=== PATIENT | female | born 1950 | race Caucasian/White ===

== ENCOUNTER 2018-07-18 14:46 | Emergency (ER) | payer OTHER ==
--- OUTSIDE RECORDS SUMMARY | 2018-07-18 14:53 | XMS REPORT | Summary of Care ---
:1950 Author Organization [facility] [place] Address [address] [place] [id number] Encounter HQ Encntr_alias(FIN) [id number] Date(s): 04/18/16 - 04/18/16 [facility] [address], [address] [place] [address]- [phone] Discharge Disposition: Home or Self Care Attending Physician: Loyd Leary MD Vital Signs No data available for this section Problem List Condition Effective Dates Status Health Status Informant Abnormal weight gain1 06/28/11 Active Breast lump2 06/28/11 Active Fatigue3 06/28/11 Active Hypertension(Confirmed) Active Anxiety and depression(Confirmed) Active Obesity(Confirmed) Active Thyroid function tests abnormal4 06/28/11 Active 1Data migrated from [employer] on 01/05/15.2Data migrated from [employer] on 01/05/15.3Data migrated from [employer] on 01/05/15.4Data migrated from [employer] on 01/05/15. Allergies, Adverse Reactions, Alerts Substance Reaction Severity Status HYDROmorphone1 Active tetracycline2 Active 1Data migrated from [employer] on 12/04/14. Originally documented as DILAUDID. ?2Data migrated from [employer] on 12/04/14. Originally documented as TETRACYCLINE. Medications No data available for this section Results No data available for this section Immunizations No data available for this section Procedures Procedure Date Related Diagnosis Body Site Breast augmentation Colonoscopy Hysterectomy Social History Social History Type Response Alcohol Never Smoking Status Never smoker; Exposure to Tobacco Smoke None; Cigarette Smoking Last 365 Days No; Reg Smoking Cessation Counseling No Assessment and Plan No data available for this section
[2018-07-18] MEDS ORDERED: ALBUTEROL 2.5 MG/3 ML NEB SOL ONE (15:45)
[2018-07-18] MEDS ORDERED: METHYLPREDNISOLONE 125 MG INJ ONE (15:45)
[2018-07-18 16:02] LABS: Absolute Neutrophil 8.9 K/uL (1.8-8.0); Basophils % 1.4 % (0-1.3); Hematocrit 43.1 % (36.0-45.0); Lymphocytes % 16.2 % (15.3-44.8); MCH 29.7 pg (27.0-35.0); MCV 87.3 fL (80-100); Monocytes % 7.9 % (3.3-12.3); Protime INR 1.04; RBC Red Blood Cell Count 4.93 M/uL (3.86-4.86)
--- NOTE | 2018-07-18 16:09 | RAD REPORT ---
EXAM DESCRIPTION: Gema Single View07/18/2018 4:01 pm CLINICAL HISTORY: sob COMPARISON: none FINDINGS: The lungs appear clear of acute infiltrate. The heart is normal size IMPRESSION: No acute abnormalities displayed
[2018-07-18 16:16] LABS: ALT/SGPT 22 U/L (12-78); AST/SGOT 14 U/L (15-37); Albumin 3.7 g/dL (3.4-5.0); Alkaline Phosphatase 67 U/L (45-117); BUN Blood Urea Nitrogen 14 mg/dL (7-18); Bicarbonate 30 mmol/L (21-32); Bilirubin Direct 0.1 mg/dL (0-0.2); Bilirubin Total 0.5 mg/dL (0.2-1.0); Glucose Level 102 mg/dL (74-106); Magnesium 2.1 mg/dL (1.8-2.4); NT PRO-BNP 250 pg/mL (<125); Potassium 4.1 mmol/L (3.5-5.1); Protein, Total 8.1 g/dL (6.4-8.2); Sodium Level 138 mmol/L (136-145); Troponin (Emerg Dept Use Only) < 0.02 ng/mL (0.0-0.045)
--- NOTE | 2018-07-18 17:12 | EDPHYS ---
Physician Documentation [facility] Name: Oksana Elizalde Age: 68 yrs Sex: Female : 1950 Arrival Date: 07/18/2018 Time: 14:50 Bed 28 Private MD: Lester Rasheed ED Physician Lee Padron HPI: 07/18 16:23 This 68 yrs old Female presents to ER via Wheelchair with complaints of jr8 Breathing Difficulty. 16:23 The patient has shortness of breath at rest. Onset: The symptoms/episode began/occurred jr8 acutely, yesterday. Duration: The symptoms are continuous. The patient's shortness of breath is aggravated by talking, walking. Associated signs and symptoms: Pertinent positives: non-productive cough. Severity of symptoms: At their worst the symptoms were moderate in the emergency department the symptoms are unchanged. The patient has not experienced similar symptoms in the past. The patient has not recently seen a physician. Patient stated that she continually has wheezing on/off and feels shortness of breath with any exertion. Has to frequently rest. Stated that yesterday had sudden onset of shortness of breath at rest that has not relieved. Denies having this hard of time in past. Tried inhaler at home but without much relief. Denies cardiac or pulmonary history . Historical: - Allergies: 15:24 Dilaudid; mg2 15:24 TETRACYCLINES; mg2 - Home Meds: 15:24 metoprolol tartrate 25 mg Oral tab [Active]; Fluoxetine Oral [Active]; mg2 - PMHx: 15:24 Hypertension; mg2 - PSHx: 15:24 colon surgery; Hysterectomy; breast implants; tummy tuck; Appendectomy; mg2 - Immunization history:: Flu vaccine is not up to date. - Social history:: Smoking status: Patient/guardian denies using tobacco, Patient/guardian denies using alcohol, street drugs, IV drugs. - Ebola Screening: : No symptoms or risks identified at this time. ROS: 16:23 Eyes: Negative for injury, pain, redness, and discharge, ENT: Negative for injury, jr8 pain, and discharge, Neck: Negative for injury, pain, and swelling, Cardiovascular: Negative for chest pain, palpitations, and edema, Abdomen/GI: Negative for abdominal pain, nausea, vomiting, diarrhea, and constipation, Back: Negative for injury and pain, MS/Extremity: Negative for injury and deformity, Skin: Negative for injury, rash, and discoloration, Neuro: Negative for headache, weakness, numbness, tingling, and seizure. 16:23 Respiratory: Positive for cough, dyspnea on exertion, shortness of breath, wheezing. Exam: 16:23 Eyes: Pupils equal round and reactive to light, extra-ocular motions intact. Lids and jr8 lashes normal. Conjunctiva and sclera are non-icteric and not injected. Cornea within normal limits. Periorbital areas with no swelling, redness, or edema. ENT: Nares patent. No nasal discharge, no septal abnormalities noted. Tympanic membranes are normal and external auditory canals are clear. Oropharynx with no redness, swelling, or masses, exudates, or evidence of obstruction, uvula midline. Mucous membranes moist. Neck: Trachea midline, no thyromegaly or masses palpated, and no cervical lymphadenopathy. Supple, full range of motion without nuchal rigidity, or vertebral point tenderness. No Meningismus. Cardiovascular: Regular rate and rhythm with a normal S1 and S2. No gallops, murmurs, or rubs. Normal PMI, no JVD. No pulse deficits. Abdomen/GI: Soft, non-tender, with normal bowel sounds. No distension or tympany. No guarding or rebound. No evidence of tenderness throughout. Back: No spinal tenderness. No costovertebral tenderness. Full range of motion. Skin: Warm, dry with normal turgor. Normal color with no rashes, no lesions, and no evidence of cellulitis. MS/ Extremity: Pulses equal, no cyanosis. Neurovascular intact. Full, normal range of motion. Neuro: Awake and alert, GCS 15, oriented to person, place, time, and situation. Cranial nerves II-XII grossly intact. Motor strength 5/5 in all extremities. Sensory grossly intact. Cerebellar exam normal. Normal gait. 16:23 Respiratory: the patient does not display signs of respiratory distress, Respirations: normal, symetrical, no use of accessory muscles, no grunting, no evidence of nasal flaring, no prolonged exhalations, no pursed lip breathing, no retractions, no shallow respirations, no splinting, no tachypnea, Breath sounds: decreased breath sounds, that are mild, are located in both bases. Vital Signs: 15:22 BP 150 / 73; Pulse 70; Resp 18; Temp 98.7; Pulse Ox 96% on R/A; Weight 81.65 kg; Height mg2 5 ft. 2 in. (157.48 cm); Pain 0/10; 16:00 BP 140 / 72; Pulse 95; Resp 18; Pulse Ox 100% on R/A; Pain 0/10; mg2 17:11 BP 143 / 73; Pulse 97; Resp 18; Pulse Ox 98% on R/A; Pain 0/10; mg2 15:22 Body Mass Index 32.92 (81.65 kg, 157.48 cm) mg2 MDM: 15:13 Patient medically screened. jr8 17:10 Differential diagnosis: Anemia Anxiety Reaction asthma, Bronchitis CHF exacerbation, jr8 Chronic Obstructive Pulmonary Disease Myocardial Infarction pneumonia, pulmonary edema, Pulmonary Embolism Sepsis. Data reviewed: vital signs, nurses notes, lab test result(s), EKG, radiologic studies, plain films. Data interpreted: Pulse oximetry: on room air is 96 %. Interpretation: normal. Counseling: I had a detailed discussion with the patient and/or guardian regarding: the historical points, exam findings, and any diagnostic results supporting the discharge/admit diagnosis, lab results, radiology results, the need for outpatient follow up, a integrated campaign manager, to return to the emergency department if symptoms worsen or persist or if there are any questions or concerns that arise at home. Response to treatment: the patient's symptoms have markedly improved after treatment. 07/18 15:32 Order name: Basic Metabolic Panel; Complete Time: 16:20 07/18 15:32 Order name: CBC with Diff; Complete Time: 16:20 07/18 15:32 Order name: LFT's; Complete Time: 16:20 07/18 15:32 Order name: Magnesium; Complete Time: 16:20 07/18 15:32 Order name: NT PRO-BNP; Complete Time: 16:20 07/18 15:32 Order name: PT-INR; Complete Time: 16:20 07/18 15:32 Order name: Troponin (emerg Dept Use Only); Complete Time: 16:20 07/18 15:32 Order name: XRAY Chest (1 view); Complete Time: 16:20 07/18 15:32 Order name: EKG; Complete Time: 15:33 jr8 07/18 15:32 Order name: Cardiac monitoring; Complete Time: 15:54 [facility] 07/18 15:32 Order name: EKG - Nurse/Tech; Complete Time: 15:55 [facility] 07/18 15:32 Order name: IV Saline Lock; Complete Time: 15:55 [facility] 07/18 15:32 Order name: Labs collected and sent; Complete Time: 15:55 [facility] 07/18 15:32 Order name: O2 Per Protocol; Complete Time: 15:55 [facility] 07/18 15:32 Order name: O2 Sat Monitoring; Complete Time: 15:55 Administered Medications: 15:52 Drug: Albuterol 2.5 mg Route: Inhalation; mg2 15:53 Drug: SOLU-Medrol 125 mg Route: IVP; Site: right antecubital; mg2 17:12 Follow up: Response: No adverse reaction; Marked relief of symptoms mg2 16:15 Drug: Albuterol 2.5 mg Route: Inhalation; mg2 16:50 Drug: Albuterol 2.5 mg Route: Inhalation; mg2 17:12 Follow up: Response: No adverse reaction; Marked relief of symptoms mg2 Disposition: 07/18/18 17:11 Discharged to Home. Impression: Acute bronchitis. - Condition is Stable. - Discharge Instructions: Acute Bronchitis, Adult. - Prescriptions for Prednisone 20 mg Oral Tablet - take 2 tablet by ORAL route once daily for 5 days; 10 tablet. Albuterol Sulfate 90 mcg/actuation - inhale 1-2 puff by INHALATION route every 4-6 hours; 1 Inhaler. - Medication Reconciliation Form, Thank You Letter, Antibiotic Education, Prescription Opioid Use form. - Follow up: Jeff Govea MD; When: 2 - 3 days; Reason: Recheck today's complaints, Continuance of care, Re-evaluation by your physician. - Problem is new. - Symptoms have improved. Addendum: 07/24/2018 01:35 Co-signature as Attending Physician, Lee Padron MD. r n Signatures: Dispatcher [employer] Lee Goldstein MD MD rn Roszak, Josh, PA PA jr8 Bob Cifuentes RN RN mg2 Corrections: (The following items were deleted from the chart) 07/18 17:25 17:11 07/18/2018 17:11 Discharged to Home. Impression: Acute bronchitis. Condition is mg2 Stable. Forms are Medication Reconciliation Form, Thank You Letter, Antibiotic Education, Prescription Opioid Use. Follow up: Jeff Govea; When: 2 - 3 days; Reason: Recheck today's complaints, Continuance of care, Re-evaluation by your physician. Problem is new. Symptoms have improved. jr8
--- NOTE | 2018-07-18 17:12 | ER ---
Nurse's Notes [facility] Name: Oksana Elizalde Age: 68 yrs Sex: Female : 1950 Arrival Date: 07/18/2018 Time: 14:50 Bed 28 Private MD: Lester Rasheed Diagnosis: Acute bronchitis Presentation: 07/18 15:21 Presenting complaint: Patient states: she has shortness of breath since last night and mg2 coughing for a long time. uses inhaler at home but seems not to work,. Transition of care: patient was not received from another setting of care. Onset of symptoms was July 17, 2018. Risk Assessment: Do you want to hurt yourself or someone else? Patient reports no desire to harm self or others. Initial Sepsis Screen: Does the patient meet any 2 criteria? No. Patient's initial sepsis screen is negative. Does the patient have a suspected source of infection? No. Patient's initial sepsis screen is negative. Care prior to arrival: None. 15:21 Method Of Arrival: Wheelchair mg2 15:21 Acuity: WAYLON 3 mg2 Triage Assessment: 15:57 General: Appears in no apparent distress. Respiratory: the patient has mild shortness mg2 of breath. Respiratory: Onset: The symptoms/episode began/occurred gradually. Historical: - Allergies: 15:24 Dilaudid; mg2 15:24 TETRACYCLINES; mg2 - Home Meds: 15:24 metoprolol tartrate 25 mg Oral tab [Active]; Fluoxetine Oral [Active]; mg2 - PMHx: 15:24 Hypertension; mg2 - PSHx: 15:24 colon surgery; Hysterectomy; breast implants; tummy tuck; Appendectomy; mg2 - Immunization history:: Flu vaccine is not up to date. - Social history:: Smoking status: Patient/guardian denies using tobacco, Patient/guardian denies using alcohol, street drugs, IV drugs. - Ebola Screening: : No symptoms or risks identified at this time. Screenin:56 Abuse screen: Denies threats or abuse. Denies injuries from another. Nutritional mg2 screening: No deficits noted. Tuberculosis screening: No symptoms or risk factors identified. Fall Risk IV access (20 points). Assessment: 15:55 General: Appears in no apparent distress. comfortable, Behavior is calm, cooperative. mg2 Pain: Denies pain. Neuro: Level of Consciousness is awake, alert, obeys commands, Oriented to person, place, time, situation. Cardiovascular: Capillary refill < 3 seconds Patient's skin is warm and dry. Rhythm is regular. Respiratory: Airway is patent Respiratory effort is even, unlabored, Respiratory pattern is regular, symmetrical, Breath sounds are clear bilaterally. in mediastinum, right upper lobe, left upper lobe, left posterior upper lobe, right posterior upper lobe, left posterior lower lobe, right posterior middle lobe and right posterior lower lobe. Respiratory: Reports shortness of breath at rest since last night cough that is. GI: No signs and/or symptoms were reported involving the gastrointestinal system. : No signs and/or symptoms were reported regarding the genitourinary system. EENT: No signs and/or symptoms were reported regarding the EENT system. Derm: Skin is intact, is healthy with good turgor, Skin is pink, warm \T\ dry. normal. Musculoskeletal: No deficits noted. 17:11 Reassessment: Patient appears in no apparent distress at this time. Patient and/or mg2 family updated on plan of care and expected duration. Pain level reassessed. Patient is alert, oriented x 3, equal unlabored respirations, skin warm/dry/pink. Vital Signs: 15:22 BP 150 / 73; Pulse 70; Resp 18; Temp 98.7; Pulse Ox 96% on R/A; Weight 81.65 kg; Height mg2 5 ft. 2 in. (157.48 cm); Pain 0/10; 16:00 BP 140 / 72; Pulse 95; Resp 18; Pulse Ox 100% on R/A; Pain 0/10; mg2 17:11 BP 143 / 73; Pulse 97; Resp 18; Pulse Ox 98% on R/A; Pain 0/10; mg2 15:22 Body Mass Index 32.92 (81.65 kg, 157.48 cm) mg2 ED Course: 14:50 Patient arrived in ED. rg4 14:50 Lester Rasheed MD is Private Physician. rg4 15:13 Selwyn Campbell PA is [facility]. jr8 15:13 Lee Padron MD is Attending Physician. jr8 15:20 Bob Cifuentes, ALFREDO is Primary Nurse. mg2 15:22 Triage completed. mg2 15:56 No provider procedures requiring assistance completed. Inserted saline lock: 22 gauge mg2 in right forearm, using aseptic technique. Blood collected. 15:56 Patient has correct armband on for positive identification. cardiac monitor on. Pulse mg2 ox on. NIBP on. Door closed. Warm blanket given. 15:57 Arm band placed on. mg2 16:01 XRAY Chest (1 view) In Process Unspecified. EDMS 16:01 EKG done, by customer account technician. reviewed by Selwyn FAJARDO. sm3 17:11 Jeff Govea MD is Referral Physician. jr8 17:24 IV discontinued, intact, bleeding controlled, No redness/swelling at site. Pressure mg2 dressing applied. Administered Medications: 15:52 Drug: Albuterol 2.5 mg Route: Inhalation; mg2 15:53 Drug: SOLU-Medrol 125 mg Route: IVP; Site: right antecubital; mg2 17:12 Follow up: Response: No adverse reaction; Marked relief of symptoms mg2 16:15 Drug: Albuterol 2.5 mg Route: Inhalation; mg2 16:50 Drug: Albuterol 2.5 mg Route: Inhalation; mg2 17:12 Follow up: Response: No adverse reaction; Marked relief of symptoms mg2 Outcome: 17:11 Discharge ordered by . jr8 17:24 Discharged to home ambulatory, with family. mg2 17:24 Condition: stable 17:24 Discharge instructions given to patient, family, Instructed on discharge instructions, follow up and referral plans. medication usage, Demonstrated understanding of instructions, follow-up care, medications, Prescriptions given X 2. 17:25 Patient left the ED. mg2 Signatures: Dispatcher [employer] EDCO Selwyn Campbell PA PA jr8 Kelli Vanegas rg4 Bob Cifuentes RN RN mg2 Nadine Brady sm3 Corrections: (The following items were deleted from the chart) 17:13 17:11 Pulse 97bpm; Resp 18bpm; Pulse Ox 98% RA; Pain 0/10; mg2 mg2
--- NOTE | 2018-07-19 05:14 | EKG ---
Test Date: 2018-07-18 Test Time: 15:40:43 Director Federal: WENDI MEASUREMENT RESULTS: Intervals: Rate: 62 PA: 166 QRSD: 68 QT: 432 QTc: 438 [place]: P: 64 PA: 166 QRS: 62 T: 72 INTERPRETIVE STATEMENTS: Normal sinus rhythm with sinus arrhythmia Normal ECG Compared to ECG 07/31/2001 17:37:00 No significant changes Electronically Signed On 07-19-18 05:14:33 SWITCHBOARD OPERATOR by Mainor Reyes
== END 2018-07-18 17:25 | disposition home or self-care (01) ==
LOC: ER 14:46
DX: J20.9 Acute bronchitis, unspecified (principal); I10 Essential (primary) hypertension; Z98.82 Breast implant status; Z88.1 Allergy status to other antibiotic agents; Z88.8 Allergy status to other drugs, medicaments and biological substances
CPT/HCPCS: 36415; 71045; 80048; 80076; 83735; 83880; 84484; 85025; 85610; 93005; 96374; 99285; J2930

== ENCOUNTER 2018-07-25 13:01 | Observation (INO) | payer OTHER ==
[2018-07-25] MEDS ORDERED: LEVALBUTEROL 1.25 MG/3 ML NEB ONE (15:13)
[2018-07-25 15:22] LABS: Protime INR 1.03
--- NOTE | 2018-07-25 15:23 | RAD REPORT ---
EXAM DESCRIPTION: RAD - Chest Single View - 07/25/2018 3:16 pm CLINICAL HISTORY: Congestion;Cough;SOB Chest pain. COMPARISON: Chest Single View dated 07/18/2018 FINDINGS: Portable technique limits examination quality. The lungs are grossly clear. The heart is normal in size. No displaced fractures. IMPRESSION: No acute intrathoracic process suspected.
[2018-07-25 15:28] LABS: ALT/SGPT 22 U/L (12-78); AST/SGOT 16 U/L (15-37); Albumin 3.5 g/dL (3.4-5.0); Alkaline Phosphatase 60 U/L (45-117); BUN Blood Urea Nitrogen 21 mg/dL (7-18); Bicarbonate 32 mmol/L (21-32); Bilirubin Direct < 0.1 mg/dL (0-0.2); Bilirubin Total 0.3 mg/dL (0.2-1.0); Glucose Level 99 mg/dL (74-106); Lipase 165 U/L (73-393); Magnesium 2.3 mg/dL (1.8-2.4); NT PRO-BNP 123 pg/mL (<125); Potassium 4.8 mmol/L (3.5-5.1); Protein, Total 7.7 g/dL (6.4-8.2); Sodium Level 135 mmol/L (136-145); Troponin (Emerg Dept Use Only) < 0.02 ng/mL (0.0-0.045)
[2018-07-25 15:31] LABS: Absolute Lymphocytes (CBC) 1.9 K/uL (0.7-4.9); Absolute Monocytes 1.3 K/uL (0.1-1.3); Absolute Neutrophil 12.3 K/uL (1.8-8.0); Basophils % 1.2 % (0-1.3); Eosinophils % 2.9 % (0-4.4); Hematocrit 44.1 % (36.0-45.0); Lymphocytes % 11.7 % (15.3-44.8); MPV 7.8 fL (7.6-11.3); Monocytes % 7.8 % (3.3-12.3); RBC Red Blood Cell Count 5.07 M/uL (3.86-4.86)
[2018-07-25] MEDS ORDERED: METOCLOPRAMIDE 10 MG/2mL INJ ONE (16:40)
[2018-07-25] MEDS ORDERED: METOPROLOL TARTRATE 5 MG/5 ML INJ IV ONE (16:50)
--- NOTE | 2018-07-25 17:05 | ER ---
Nurse's Notes [facility] Name: Oksana Elizalde Age: 68 yrs Sex: Female : 1950 Arrival Date: 07/25/2018 Time: 13:02 Bed 28 Private MD: Diagnosis: Shortness of breath;Cardiac Dysrhythmia, SVT Presentation: 07/25 13:10 Presenting complaint: Patient states: Shortness of breath that started yesterday. aj1 States that she was seen her last week and discharged home with a Rx for an inhaler and steroids. She finished the steroids and now the inhaler isn't helping like it previously was. Reports productive cough. Denies fever or congestion. Transition of care: patient was not received from another setting of care. Onset of symptoms was July 24, 2018. Risk Assessment: Do you want to hurt yourself or someone else? Patient reports no desire to harm self or others. Initial Sepsis Screen: Does the patient meet any 2 criteria? No. Patient's initial sepsis screen is negative. Does the patient have a suspected source of infection? Yes: Productive cough/pneumonia. Care prior to arrival: None. 13:10 Method Of Arrival: Ambulatory aj 13:10 Acuity: WAYLON 3 aj1 Triage Assessment: 13:13 General: Appears in no apparent distress. comfortable, Behavior is calm, cooperative, aj1 appropriate for age. Pain: Denies pain. Neuro: Level of Consciousness is awake, alert, obeys commands. Respiratory: Reports shortness of breath Onset: The symptoms/episode began/occurred yesterday, the patient has mild shortness of breath. Historical: - Allergies: 13:13 Dilaudid; aj1 13:13 TETRACYCLINES; aj1 - Home Meds: 13:13 Fluoxetine Oral [Active]; metoprolol tartrate 25 mg Oral tab [Active]; aj1 - PMHx: 13:13 Hypertension; aj1 - PSHx: 13:13 Hysterectomy; Appendectomy; breast augmentation; colon surgery for precancer; tummy aj1 tuck; - Immunization history:: Flu vaccine is not up to date. - Social history:: Smoking status: Patient/guardian denies using tobacco. - Ebola Screening: : Patient denies travel to an Ebola-affected area in the 21 days before illness onset. Screenin:15 Abuse screen: Denies threats or abuse. Denies injuries from another. Nutritional aj1 screening: No deficits noted. Tuberculosis screening: No symptoms or risk factors identified. 20:17 Fall Risk None identified. rv Assessment: 13:15 General: Appears in no apparent distress. Behavior is calm, cooperative, appropriate aj1 for age. Pain: Denies pain. Neuro: Level of Consciousness is awake, alert, obeys commands. Cardiovascular: Patient's skin is warm and dry. Rhythm is regular. Respiratory: Reports shortness of breath cough that is productive, Airway is patent Respiratory effort is even, unlabored, Breath sounds with wheezes in right posterior lower lobe. GI: No signs and/or symptoms were reported involving the gastrointestinal system. : No signs and/or symptoms were reported regarding the genitourinary system. EENT: No signs and/or symptoms were reported regarding the EENT system. Derm: No signs and/or symptoms reported regarding the dermatologic system. Skin is pink, warm \T\ dry. normal. Musculoskeletal: No signs and/or symptoms reported regarding the musculoskeletal system. Circulation, motion, and sensation intact. 14:18 Reassessment: Patient appears in no apparent distress at this time. No changes from aj1 previously documented assessment. Patient and/or family updated on plan of care and expected duration. Pain level reassessed. Patient is alert, oriented x 3, equal unlabored respirations, skin warm/dry/pink. 15:15 Reassessment: Patient appears in no apparent distress at this time. No changes from aj1 previously documented assessment. Patient and/or family updated on plan of care and expected duration. Pain level reassessed. Patient is alert, oriented x 3, equal unlabored respirations, skin warm/dry/pink. 15:40 Reassessment: Dr. Morrow at bedside. aj1 16:11 Reassessment: Patient's heart rate increased to 150's, patient denies any pain or aj1 increase in shortness of breath. Reports palpitations. Patient placed on O2\T\2L per nc Notified Dr. Morrow. 16:12 Reassessment: Dr. Morrow at bedside to reassess patient. aj1 16:50 Reassessment: Patient reports that she is no longer having palpitations, reports she is aj1 feeling better. Patient is sinus rhythm on the monitor. Respirations even and unlabored. Denies pain at this time. 17:39 Reassessment: Patient appears in no apparent distress at this time. No changes from aj1 previously documented assessment. Patient and/or family updated on plan of care and expected duration. Pain level reassessed. Patient is alert, oriented x 3, equal unlabored respirations, skin warm/dry/pink. 18:35 Reassessment: Patient appears in no apparent distress at this time. No changes from aj1 previously documented assessment. Patient and/or family updated on plan of care and expected duration. Pain level reassessed. Patient is alert, oriented x 3, equal unlabored respirations, skin warm/dry/pink. Vital Signs: 13:13 BP 148 / 93; Pulse 84; Resp 20; Temp 98.8(O); Pulse Ox 90% on R/A; Weight 81.65 kg (R); aj1 Height 5 ft. 2 in. (157.48 cm) (R); 13:14 Pulse Ox 96% on 2 lpm NC; aj1 14:18 BP 146 / 76; Pulse 72; Resp 20; Pulse Ox 96% on 2 lpm NC; aj1 15:42 BP 145 / 82; Pulse 111; Resp 20; Pulse Ox 95% on R/A; aj1 16:11 BP 130 / 75; Pulse 158; Resp 24; Pulse Ox 90% on R/A; aj1 16:40 BP 136 / 89; Pulse 168; Resp 20; Pulse Ox 97% on 2 lpm NC; aj1 16:50 BP 100 / 66; Pulse 92; Resp 18; Pulse Ox 98% on 2 lpm NC; aj1 17:39 BP 115 / 63; Pulse 85; Resp 18; Pulse Ox 97% on 2 lpm NC; aj1 18:32 BP 99 / 75; Pulse 96; Resp 18; Pulse Ox 97% on 2 lpm NC; aj1 20:13 BP 91 / 48; Pulse 82 MON; Resp 16 S; Pulse Ox 96% on 2 lpm NC; rv 13:13 Body Mass Index 32.92 (81.65 kg, 157.48 cm) aj1 ED Course: 13:02 Patient arrived in ED. sb2 13:10 Justa Silva, RN is Primary Nurse. aj1 13:12 Triage completed. aj1 13:13 Arm band placed on Patient placed in an exam room. aj1 13:15 Burke Morrow MD is Attending Physician. kdr 13:15 Patient has correct armband on for positive identification. Bed in low position. Call aj1 light in reach. Side rails up X 1. 13:15 No provider procedures requiring assistance completed. aj1 13:33 EKG done, by windows laptop technician. reviewed by Burke Morrow MD. 3 15:15 X-ray completed. Portable x-ray completed in exam room. Patient tolerated procedure sg4 well. 15:18 XRAY Chest (1 view) In Process Unspecified. EDMS 17:04 Lester Rasheed MD is Hospitalizing Provider. kdr 17:08 EKG done, by windows laptop technician. reviewed by Burke Morrow MD. 3 19:00 Repeat lab(s) drawn. by il, sent to lab. jp3 19:33 Troponin I Sent. jp3 20:18 Patient admitted, IV remains in place. intact. rv Administered Medications: 15:08 Drug: Xopenex (3) 1.25 mg Route: Inhalation; aj1 16:45 Drug: Metoprolol 2.5 mg Route: IVP; Site: left antecubital; aj1 20:24 Follow up: Response: Marked relief of symptoms rv Outcome: 17:05 Decision to Hospitalize by Provider. kdr 20:17 Admitted to Tele accompanied by tech, via wheelchair, room 421, Report called to VERONIKA brown RN 20:17 Condition: good 20:25 Patient left the ED. rv Signatures: Dispatcher [employer] EDNV Justa Silva, RN RN aj1 Burke Morrow MD MD kdr [place]illeau, Sheri 2 Nadine Brady 3 Kristian Worthy RN RN rv Dakota Gilbert jp3 Sirisha Vanegas sg4 Corrections: (The following items were deleted from the chart) 16:13 16:11 Reassessment: Patient's heart rate increased to 150's, patient denies any pain or aj1 increase in shortness of breath. Reports palpitations. Notified Dr. Morrow aj1
--- NOTE | 2018-07-25 17:05 | EDPHYS ---
Physician Documentation [facility] Name: Oksana Elizalde Age: 68 yrs Sex: Female : 1950 Arrival Date: 07/25/2018 Time: 13:02 Bed 28 Private MD: ED Physician Burke Morrow HPI: 07/25 18:25 This 68 yrs old Female presents to ER via Ambulatory with complaints of kdr Breathing Difficulty. 18:25 The patient has shortness of breath at rest, with light activity. Onset: The kdr symptoms/episode began/occurred gradually, 2 day(s) ago. Duration: The symptoms are continuous, and are steadily getting worse. The patient's shortness of breath is aggravated by coughing, exertion, light activity, walking, is alleviated by inhaler, nebulizer treatment, application of supplemental oxygen. Associated signs and symptoms: Pertinent positives: non-productive cough, Pertinent negatives: chest pain, productive cough, diaphoresis, dizziness, fever, hemoptysis, loss of consciousness, nausea, numbness in extremities, visual changes, vomiting. Severity of symptoms: At their worst the symptoms were mild just prior to arrival, in the emergency department the symptoms. The patient has experienced a previous episode, last week. The patient has been recently seen at the [facility] Emergency Department, last week. The patient has been seen here a week ago and given nebs and steroids. She felt better for about five days and then for the last 2-3 days has started to feel worse again. She denies fever and any other associated s/s. Historical: - Allergies: 13:13 Dilaudid; aj1 13:13 TETRACYCLINES; aj1 - Home Meds: 13:13 Fluoxetine Oral [Active]; metoprolol tartrate 25 mg Oral tab [Active]; aj1 - PMHx: 13:13 Hypertension; aj1 - PSHx: 13:13 Hysterectomy; Appendectomy; breast augmentation; colon surgery for precancer; tummy aj1 [place]; - Immunization history:: Flu vaccine is not up to date. - Social history:: Smoking status: Patient/guardian denies using tobacco. - Ebola Screening: : Patient denies travel to an Ebola-affected area in the 21 days before illness onset. ROS: 18:25 Constitutional: Negative for fever, chills, and weight loss, Eyes: Negative for injury, kdr pain, redness, and discharge, ENT: Negative for injury, pain, and discharge, Neck: Negative for injury, pain, and swelling, Cardiovascular: Negative for chest pain, palpitations, and edema, Abdomen/GI: Negative for abdominal pain, nausea, vomiting, diarrhea, and constipation, Back: Negative for injury and pain, : Negative for injury, bleeding, discharge, and swelling, MS/Extremity: Negative for injury and deformity, Skin: Negative for injury, rash, and discoloration, Neuro: Negative for headache, weakness, numbness, tingling, and seizure activity. Psych: Negative for depression, anxiety, suicide ideation, homicidal ideation, and hallucinations, Allergy/Immunology: Negative for hives, rash, and allergies, Endocrine: Negative for neck swelling, polydipsia, polyuria, polyphagia, and marked weight changes, Hematologic/Lymphatic: Negative for swollen nodes, abnormal bleeding, and unusual bruising. 18:25 Respiratory: Positive for cough, with no reported sputum, dyspnea on exertion, shortness of breath, on exertion. Negative for hemoptysis, orthopnea, pleurisy. Exam: 18:25 Constitutional: This is a well developed, well nourished patient who is awake, alert, kdr and in no acute distress. Head/Face: Normocephalic, atraumatic. Eyes: Pupils equal round and reactive to light, extra-ocular motions intact. Lids and lashes normal. Conjunctiva and sclera are non-icteric and not injected. Cornea within normal limits. Periorbital areas with no swelling, redness, or edema. Neck: Trachea midline, no thyromegaly or masses palpated, and no cervical lymphadenopathy. Supple, full range of motion without nuchal rigidity, or vertebral point tenderness. No Meningismus. Chest/axilla: Normal chest wall appearance and motion. Nontender with no deformity. No lesions are appreciated. Cardiovascular: Regular rate and rhythm with a normal S1 and S2. No gallops, murmurs, or rubs. Normal PMI, no JVD. No pulse deficits. Abdomen/GI: Soft, non-tender, with normal bowel sounds. No distension or tympany. No guarding or rebound. No evidence of tenderness throughout. Back: No spinal tenderness. No costovertebral tenderness. Full range of motion. Skin: Warm, dry with normal turgor. Normal color with no rashes, no lesions, and no evidence of cellulitis. MS/ Extremity: Pulses equal, no cyanosis. Neurovascular intact. Full, normal range of motion. Neuro: Awake and alert, GCS 15, oriented to person, place, time, and situation. Cranial nerves II-XII grossly intact. Motor strength 5/5 in all extremities. Sensory grossly intact. Cerebellar exam normal. Normal gait. Psych: Awake, alert, with orientation to person, place and time. Behavior, mood, and affect are within normal limits. 18:25 Respiratory: mild respiratory distress is noted, Respirations: normal, Breath sounds: wheezing: Very mild SOB with scattered scant wheezing. Vital Signs: 13:13 BP 148 / 93; Pulse 84; Resp 20; Temp 98.8(O); Pulse Ox 90% on R/A; Weight 81.65 kg (R); aj1 Height 5 ft. 2 in. (157.48 cm) (R); 13:14 Pulse Ox 96% on 2 lpm NC; aj1 14:18 BP 146 / 76; Pulse 72; Resp 20; Pulse Ox 96% on 2 lpm NC; aj1 15:42 BP 145 / 82; Pulse 111; Resp 20; Pulse Ox 95% on R/A; aj1 16:11 BP 130 / 75; Pulse 158; Resp 24; Pulse Ox 90% on R/A; aj1 16:40 BP 136 / 89; Pulse 168; Resp 20; Pulse Ox 97% on 2 lpm NC; aj1 16:50 BP 100 / 66; Pulse 92; Resp 18; Pulse Ox 98% on 2 lpm NC; aj1 17:39 BP 115 / 63; Pulse 85; Resp 18; Pulse Ox 97% on 2 lpm NC; aj1 18:32 BP 99 / 75; Pulse 96; Resp 18; Pulse Ox 97% on 2 lpm NC; aj1 20:13 BP 91 / 48; Pulse 82 MON; Resp 16 S; Pulse Ox 96% on 2 lpm NC; rv 13:13 Body Mass Index 32.92 (81.65 kg, 157.48 cm) aj1 MDM: 17:05 Patient medically screened. kdr 18:25 Data reviewed: vital signs, nurses notes, lab test result(s), EKG, radiologic studies. kdr Counseling: I had a detailed discussion with the patient and/or guardian regarding: the historical points, exam findings, and any diagnostic results supporting the discharge/admit diagnosis, lab results, radiology results, the need for further work-up and treatment in the hospital. ED course: During the course of her initial treatment, the patient became tachycardic and slightly more SOB. She denied chest pain or any other associated s/s. The patient was otherwise stable and responded well to one round of lopressor. 07/25 14:47 Order name: Basic Metabolic Panel; Complete Time: 16:59 kdr 07/25 14:47 Order name: CBC with Diff; Complete Time: 16:59 kdr 07/25 14:47 Order name: LFT's; Complete Time: 16:59 kdr 07/25 14:47 Order name: Magnesium; Complete Time: 16:59 kdr 07/25 14:47 Order name: NT PRO-BNP; Complete Time: 16:59 kdr 07/25 14:47 Order name: PT-INR; Complete Time: 16:59 kdr 07/25 14:47 Order name: Troponin (emerg Dept Use Only); Complete Time: 16:59 kdr 07/25 14:47 Order name: Creatinine for Radiology; Complete Time: 16:59 kdr 07/25 14:47 Order name: Lipase; Complete Time: 16:59 kdr 07/25 17:30 Order name: Basic Metabolic Panel [facility] 07/25 17:30 Order name: Basic Metabolic Panel [facility] 07/25 17:30 Order name: CBC with Automated Diff [facility] 07/25 17:30 Order name: CBC with Automated Diff [facility] 07/25 17:30 Order name: NT PRO-BNP [facility] 07/25 14:47 Order name: XRAY Chest (1 view); Complete Time: 16:59 kdr 07/25 14:47 Order name: EKG; Complete Time: 14:49 kdr 07/25 14:47 Order name: Cardiac monitoring; Complete Time: 15:03 kdr 07/25 14:47 Order name: EKG - Nurse/Tech; Complete Time: 15:03 kdr 07/25 14:47 Order name: IV Saline Lock; Complete Time: 15:03 kdr 07/25 17:30 Order name: Regular [facility] 07/25 17:30 Order name: EKG Electrocardiogram [facility] 07/25 17:30 Order name: EKG Electrocardiogram [facility] 07/25 17:30 Order name: NT PRO-BNP [facility] 07/25 17:30 Order name: Troponin I [facility] 07/25 17:30 Order name: Troponin I [facility] 07/25 17:30 Order name: Troponin I [facility] 07/25 17:30 Order name: Chest Single View [facility] 07/25 17:30 Order name: Chest Single View [facility] 07/25 14:47 Order name: Labs collected and sent; Complete Time: 15:03 kdr 07/25 14:47 Order name: O2 Per Protocol; Complete Time: 15:03 kdr 07/25 14:47 Order name: O2 Sat Monitoring; Complete Time: 15:04 kdr Administered Medications: 15:08 Drug: Xopenex (3) 1.25 mg Route: Inhalation; aj1 16:45 Drug: Metoprolol 2.5 mg Route: IVP; Site: left antecubital; aj1 20:24 Follow up: Response: Marked relief of symptoms rv Disposition: 07/25/18 17:05 Hospitalization ordered by Lester Rasheed for Observation. Preliminary diagnosis are Shortness of breath, Cardiac Dysrhythmia, SVT. - Bed requested for Telemetry/MedSurg (observation). - Status is Observation. rv - Condition is Fair. - Problem is new. - Symptoms have improved. UTI on Admission? No Signatures: Dispatcher [employer] [facility] Justa Silva RN RN aj1 Oksana Nelson RN RN dw Burke Morrow MD MD [facility] Kristian Worthy, RN RN rv Corrections: (The following items were deleted from the chart) 18:18 17:05 Hospitalization Ordered by Lester Rasheed MD for Observation. Preliminary dw diagnosis is Shortness of breath; Cardiac Dysrhythmia, SVT. Bed requested for Telemetry/MedSurg (observation). Status is Observation. Condition is Fair. Problem is new. Symptoms have improved. UTI on Admission? No. kdr 20:25 18:18 07/25/2018 17:05 Hospitalization Ordered by Lester Rasheed MD for Observation. rv Preliminary diagnosis is Shortness of breath; Cardiac Dysrhythmia, SVT. Bed requested for Telemetry/MedSurg (observation). Status is Observation. Condition is Fair. Problem is new. Symptoms have improved. UTI on Admission? No. dw
--- NOTE | 2018-07-25 17:16 | EKG ---
Test Date: 2018-07-25 Test Time: 13:16:47 Shoe Salesman: MARIAH MEASUREMENT RESULTS: Intervals: Rate: 74 HI: 124 QRSD: 70 QT: 386 QTc: 428 [place]: P: 63 HI: 124 QRS: 41 T: 71 INTERPRETIVE STATEMENTS: Normal sinus rhythm Normal ECG Compared to ECG 07/18/2018 15:40:43 Sinus arrhythmia no longer present Electronically Signed On 07-25-18 17:15:44 WAXING MACHINE OPERATOR by Mainor Reyes
[2018-07-25] MEDS ORDERED: ALBUTEROL 2.5 MG/3 ML NEB SOL NEB PRN (17:27)
[2018-07-25] MEDS ORDERED: ONDANSETRON 4 MG/2 ML VIAL IV PRN (17:27)
[2018-07-25] MEDS ORDERED: IPRATROPIUM BROM 0.5MG/2.5ML NEB PRN (17:27)
[2018-07-25 20:56] VITALS: BMI 32.7
[2018-07-25] MEDS: ACETAMINOPHEN 500 MG TAB PO PRN (22:13)
[2018-07-25 22:36] LABS: Urine Appearance CLEAR; Urine Bilirubin NEGATIVE (NEG); Urine Blood NEGATIVE (NEG); Urine Color YELLOW; Urine Glucose NEGATIVE (NEG); Urine Protein NEGATIVE (NEG); Urine Urobilinogen 0.2 mg/dL (0.2-1.0); Urine pH 5.5 (5.0-7.0)
[2018-07-25 22:46] LABS: Urine Microscopic Reflex NO UMIC
[2018-07-26] MEDS: METHYLPREDNISOLONE 40 MG INJ IV SCH ×3 (00:08→16:48)
[2018-07-26 04:08] LABS: Absolute Lymphocytes (CBC) 1.4 K/uL (0.7-4.9); Absolute Monocytes 0.3 K/uL (0.1-1.3); Absolute Neutrophil 13.5 K/uL (1.8-8.0); Basophils % 0.6 % (0-1.3); Eosinophils % 1.2 % (0-4.4); Hematocrit 43.1 % (36.0-45.0); Lymphocytes % 9.3 % (15.3-44.8); MPV 7.8 fL (7.6-11.3); Monocytes % 2.2 % (3.3-12.3)
[2018-07-26 04:41] LABS: Potassium 4.6 mmol/L (3.5-5.1)
[2018-07-26 05:16] LABS: Blood Morphology Comment NOT SEEN (NOT SEEN); Platelet Estimate ADEQ; Urine White Blood Cell Casts OK
--- NOTE | 2018-07-26 06:00 | EKG ---
Test Date: 2018-07-25 Test Time: 16:21:49 Director Of Veterans Affairs: WENDI MEASUREMENT RESULTS: Intervals: Rate: 88 CO: 160 QRSD: 70 QT: 336 QTc: 406 [place]: P: 57 CO: 160 QRS: 4 T: 56 INTERPRETIVE STATEMENTS: Sinus rhythm with premature atrial complexes Otherwise normal ECG Compared to ECG 07/25/2018 16:17:53 Atrial premature complex(es) now present Supraventricular tachycardia no longer present ST (T wave) deviation no longer present Electronically Signed On 07-26-18 05:59:45 PRESS OFFICER by Mainor Reyes
--- NOTE | 2018-07-26 06:00 | EKG ---
Test Date: 2018-07-25 Test Time: 16:23:47 Squeezer Operator: WENDI MEASUREMENT RESULTS: Intervals: Rate: 169 [place]: QRSD: 68 QT: 246 QTc: 412 [place]: P: NE: QRS: 22 T: 72 INTERPRETIVE STATEMENTS: Atrial fibrillation with rapid ventricular response Marked ST abnormality, possible inferior subendocardial injury Abnormal ECG Compared to ECG 07/25/2018 16:21:49 ST (T wave) deviation now present Sinus rhythm no longer present Atrial premature complex(es) no longer present Electronically Signed On 07-26-18 05:59:41 BUS PERSON by Mainor Reyes
--- NOTE | 2018-07-26 06:01 | EKG ---
Test Date: 2018-07-25 Test Time: 16:17:53 Community Health Nurse: WENDI MEASUREMENT RESULTS: Intervals: Rate: 156 [place]: QRSD: 68 QT: 310 QTc: 499 [place]: P: [place]: QRS: 28 T: 54 INTERPRETIVE STATEMENTS: Atrial flutter with 2:1 block or Supraventricular tachycardia Nonspecific ST abnormality Abnormal ECG Compared to ECG 07/25/2018 13:16:47 ST (T wave) deviation now present Sinus rhythm no longer present Electronically Signed On 07-26-18 06:00:24 GLUER AND WEDGER by Mainor Reyes
--- NOTE | 2018-07-26 08:16 | RAD REPORT ---
EXAM DESCRIPTION: RAD - Chest Single View - 07/26/2018 7:27 am CLINICAL HISTORY: Chest Pain Chest pain. COMPARISON: Chest Single View dated 07/25/2018; Chest Single View dated 07/18/2018 FINDINGS: Portable technique limits examination quality. The lungs are grossly clear. The heart is normal in size. No displaced fractures. IMPRESSION: No acute intrathoracic process suspected.
[2018-07-26] MEDS ORDERED: PNEUMOCOCCAL VACCINE 0.5 ML IMVAC ONE (09:00)
[2018-07-26 12:09] VITALS: O2SAT 90
[2018-07-26] MEDS ORDERED: GUAIFENESIN/CODEINE 5ML UCUP PO PRN (17:01)
[2018-07-26] MEDS: ACETAMINOPHEN 500 MG TAB PO PRN (20:21)
[2018-07-27] MEDS: METHYLPREDNISOLONE 40 MG INJ IV SCH ×2 (01:14→08:18)
--- NOTE | 2018-07-27 07:01 | EKG ---
Test Date: 2018-07-26 Test Time: 14:46:39 Transportation Maintenance Specialist: SRIDHAR MEASUREMENT RESULTS: Intervals: Rate: 76 TN: 136 QRSD: 70 QT: 396 QTc: 445 [place]: P: 65 TN: 136 QRS: 35 T: 69 INTERPRETIVE STATEMENTS: Normal sinus rhythm Normal ECG Compared to ECG 07/26/2018 08:27:36 No significant changes Electronically Signed On 07-27-18 06:52:17 POWER BRAKE REBUILDER by Alvin Ruiz
--- NOTE | 2018-07-27 07:02 | EKG ---
Test Date: 2018-07-26 Test Time: 08:27:36 Transitional Nurse: SRIDHAR MEASUREMENT RESULTS: Intervals: Rate: 70 WY: 138 QRSD: 70 QT: 428 QTc: 462 [place]: P: 67 W[place]: 138 QRS: 25 T: 69 INTERPRETIVE STATEMENTS: Normal sinus rhythm Normal ECG Compared to ECG 07/25/2018 16:23:47 Atrial fibrillation no longer present ST (T wave) deviation no longer present Electronically Signed On 07-27-18 06:53:25 LABORER CAR BARN by Alvin Ruiz
[2018-07-27 09:48] VITALS: BP 146/65; TEMP 97.7
--- OUTSIDE RECORDS SUMMARY | 2018-07-27 15:51 | XMS REPORT | Continuity of Care Document ---
:1950 Author Organization Interface Problems Problem Status Onset Classification Date Comments Source Date Reported Abnormal weight Active 06/28/20 Problem 04/21/2016 Data migrated [facility] gain<sup>1</sup> 11 from [facility] [facility] on 01/05/15. Breast Active 06/28/20 Problem 04/21/2016 Data migrated [facility] lump<sup>2</sup> 11 from [facility] [facility] on 01/05/15. Fatigue<sup>3</s Active 06/28/20 Problem 04/21/2016 Data migrated [facility] up> 11 from [facility] [facility] on 01/05/15. Thyroid function Active 06/28/20 Problem 04/21/2016 Data migrated [facility] tests 11 from [facility] abnormal<sup>4</ Centric[facility] on sup> 01/05/15. Hypertension Active Problem 04/21/2016 [facility] Anxiety and Active Problem 04/21/2016 [facility] depression [facility] Obesity Active Problem 04/21/2016 [facility] Medications Medication Details Route Status Patient Ordering Order Source Instructions Provider Date Allergies, Adverse Reactions, Alerts Substance Category Reaction Severity Reaction Status Date Comments Source type Reported HYDROmorpho Assertion Drug Active Data [facility] ne<sup>1</s allergy 1 migrated [facility] up> from [facility] on 12/04/14. Originally documented as DILAUDID. ? tetracyclin Assertion Drug Active Data [facility] e<sup>2</bashir allergy 1 migrated [facility] p> from [facility] on 12/04/14. Originally documented as TETRACYCLIN E. Immunizations Immunization Date Given Site Status Last Updated Comments Source Results Order Results Value Reference Date Interpretation Comments Source Name Range Vital Signs Vital Sign Value Date Comments Source Encounters Location Location Encounter Encounter Reason Attending ADM DC Status Source Details Type Number For Provider Date Date Visit HS Outpt Diag [id number] [place] 09/12 09/13 [facility] [place] [facility] Procedures Procedure Code Date Perfomer Comments Source Breast [id number] [facility] Colon[facility] [id number] [facility] [id number] [facility]
--- NOTE | 2018-07-27 21:19 | PN ---
Date of Progress Note: 07/26/2018 The patient states she feels better. She has had no further episodes that she is aware of. However, on further questioning, she does state she has had some episodes intermittently over the weeks prior to this, has not been able to set a pattern with it. During her hospital stay, she was not observed to have any further incidents. However, I have placed her on telemetry overnight and if this is lou ar of AFib or A-flutter, she could be discharged to follow up as an outpatient. HR/MODL Voice ID: [id number] Report ID: [id number]
== END 2018-07-27 11:57 | disposition home or self-care (01) ==
LOC: ER 13:01 → ERHOLD 17:27 → 4TH 20:17
PROVIDERS: ADMIT Family Medicine; ATTEND Family Medicine
DX: I47.1 Supraventricular tachycardia (principal); R06.02 Shortness of breath; I10 Essential (primary) hypertension
CPT/HCPCS: 36415; 71045 ×2; 80048 ×2; 80076; 81003; 83690; 83735; 83880 ×2; 84484 ×3; 85025 ×2; 85610; 93005 ×6; 94640; 94760; 96374; 99285; J2920 ×5; G0378; J2765